=== PATIENT | female | born 1945 | race Caucasian/White ===

== ENCOUNTER 2025-09-25 11:29 | Outpatient (RCR) | payer MEDICARE, SELFPAY | END 2025-09-27 23:59 | disposition home or self-care (01) | LOC: MPT 11:29 | PROVIDERS: Visit Provider Nurse Practitioner Family | DX: M17.11 Unilateral primary osteoarthritis, right knee (principal) | CPT/HCPCS: 97110; 97112; 97140; 97162 ==